=== PATIENT | female | born 1995 | race Caucasian/White ===

== ENCOUNTER 2018-02-04 15:55 | Inpatient (IN) ==
--- OUTSIDE RECORDS SUMMARY | 2018-02-04 16:09 | External Medical Summary | Clinical Summary ---
:1995 Author Organization [facility] Address [address] [place] [address] Care Team Providers Name Role Phone Unavailable Primary Care Provider Unavailable Allergies No Known Allergies Current Medications Prescription Sig. Disp. Refills Start Date End Date Status multivitamin Take 1 tablet by Active ( PLUS) 27-1 MG mouth daily. TABS Active Problems No known active problems Family History Medical History Relation Name Comments Hypertension Mother Relation Name Status Comments Father Alive Mother Alive Social History Tobacco Use Types Packs/Day Years Used Date Never Smoker Smokeless Tobacco: Never Used Alcohol Use Drinks/Week oz/Week Comments No Sex Assigned at Date Recorded Not on file Last Filed Vital Signs Vital Sign Reading Time Taken Blood Pressure 112/70 10/28/2016 10:38 AM CDT Pulse 76 10/28/2016 10:38 AM CDT Temperature - - Respiratory Rate - - Oxygen Saturation - - Inhaled Oxygen Concentration - - Weight 85.3 kg (188 lb) 10/28/2016 10:38 AM CDT Height 162.6 cm (5' 4") 10/28/2016 10:38 AM CDT Body Mass Index 32.27 10/28/2016 10:38 AM CDT Plan of Treatment Health Maintenance Due Date Last Done Comments HPV Vaccines (1 of 3 - Female 3 Dose 2007 Series) Varicella Vaccines (1 of 2 - 2 Dose 2009 Adolescent Series) MenB Vaccine (Bexsero) (1 of 2) 2012 DTaP,Tdap,and Td Vaccines (1 - Tdap) 2015 CERVICAL CANCER SCREENING 2017 Influenza Vaccine (Season Ended) 2018 06/18/2016, 05/13/2011, 05/25/2009 Results Not on filefrom Last 3 Months
[2018-02-04] MEDS ORDERED: DINOPROSTONE 10 MG VAGINAL INSERT VG ONE ×2 (16:13→17:59)
[2018-02-04] MEDS ORDERED: CARBOPROST 250 MCG/ML INJECTION IM PRN (16:13)
[2018-02-04] MEDS ORDERED: CALCIUM CARBONATE Chewable 500mg TABLET PO PRN (16:13)
[2018-02-04] MEDS ORDERED: MAG-AL + SIM ORAL LIQUID 30ml PO PRN (16:13)
[2018-02-04] MEDS ORDERED: METHYLERGONOVINE 0.2 MG/ML INJECTION IM PRN (16:13)
[2018-02-04] MEDS ORDERED: TERBUTALINE 1 MG/ML VIAL SQ PRN ×2 (16:13→17:59)
[2018-02-04] MEDS ORDERED: SALINE FLUSH 10ml SYRINGE IV PRN ×2 (16:13→17:59)
[2018-02-04] MEDS ORDERED: LIDOCAINE 1% (10mg/ml) 2mL INJ PF SDV ID PRN (16:13)
[2018-02-04 16:57] VITALS: BMI 40.6
[2018-02-04] MEDS ORDERED: DiphenhydrAMINE 25 MG CAPSULE PO PRN (17:45)
[2018-02-04] MEDS ORDERED: ZOLPIDEM 10 MG TABLET PO PRN (17:59)
--- NOTE | 2018-02-04 18:04 | OB/GYN Progress Note ---
PROCEDURE TECH Progress Note - Subjective Today's Date: 02/04/18 - Objective Laboratory Result: 02/04/18 16:33 02/04/18 16:33 - Assessment and Plan (1) Gestational diabetes mellitus Comment: Cervidil placed without difficulty. Pt tolerated procedure well.
[2018-02-05] MEDS ORDERED: D5LR 1,000 ML IV SCH ×2 (02:30→05:30)
[2018-02-05] MEDS: LR 1,000 ML IV PRN ×2 (02:30→05:37)
[2018-02-05] MEDS ORDERED: NALBUPHINE 10 MG/ML INJECTION IVP PRN ×2 (04:11→10:29)
[2018-02-05] MEDS ORDERED: LABETALOL 100mg/20ml INJECTION IVP ONE (04:41)
[2018-02-05] MEDS ORDERED: LABETALOL 20mg/4ml INJECTION IVP PRN (04:51)
[2018-02-05] MEDS ORDERED: CALCIUM GLUCONATE 4.65mEq/10ml INJECTION IV PRN (04:51)
[2018-02-05] MEDS ORDERED: CITRIC ACID/SODIUM CITRATE 30ml PO PRN (04:51)
[2018-02-05] MEDS ORDERED: MAGNESIUM SULFATE 6gm PREMIX 6 GM/100 ML BAG IV ONE (04:51)
[2018-02-05] MEDS ORDERED: LIDOCAINE 1% (10mg/ml) 2mL INJ PF SDV ID PRN (04:51)
[2018-02-05] MEDS: MAGNESIUM SULFATE DRIP 20 GM/500 ML BAG IV SCH ×2 (05:30→15:01)
--- NOTE | 2018-02-05 07:39 | Anesthesia Preoperative Report ---
Anesthesia Epidural/Spinal Rec - Date and Time Date: 02/05/18 Plan: Epidural, Spinal, GETA - Vital Signs /Para: P:0 Heart Rate: 127 - Medictaions & Allergies Inpatient Medications: Current Medications Acetaminophen (Tylenol) 500 - 1,000 mg PO Q4H PRN PRN Reason: Pain Al Hydroxide/Mg Hydroxide (Maalox Plus) 30 ml PO Q3H PRN PRN Reason: Indigestion Calcium Carbonate (Tums) 500 - 1,000 mg PO Q2H PRN PRN Reason: Indigestion Calcium Gluconate (Calcium Gluconate 4.65 Meq/10 Ml (1 Gram)) 4.65 meq IV O PRN Carboprost Tromethamine (Hemabate) 250 mcg IM O PRN PRN Reason: .Downtime Citric Acid/Sodium Citrate (Oracit) 30 ml PO Q2H PRN Diphenhydramine HCl (Benadryl) 50 mg PO HS PRN PRN Reason: Sleep Lactated Ringer's (Lactated Ringers) 1,000 mls @ 999 mls/hr IV .Q1H1M PRN Last Admin: 02/05/18 05:37 Dose: 999 mls/hr Dextrose/Lactated Ringer's (Dextrose 5%-Lactated Ringers) 1,000 mls @ 125 mls/ hr IV .Q8H [facility] Last Infusion: 02/05/18 05:29 Dose: Infused Magnesium Sulfate (Magnesium Sulfate Drip) 20 gm in 500 mls @ 50 mls/hr IV .Q10H YEIMY PRN Reason: 2 G/HR Last Admin: 02/05/18 05:30 Dose: 2 g/hr, 50 mls/hr Dextrose/Lactated Ringer's (Dextrose 5%-Lactated Ringers) 1,000 mls @ 50 mls/ hr IV .Q20H YEIMY Last Admin: 02/05/18 05:45 Dose: 50 mls/hr Labetalol HCl (Trandate) 20 mg IVP Q10M PRN Lidocaine HCl (Xylocaine-Mpf 1% Vial) 0.2 mg ID O PRN PRN Reason: IV Start Lidocaine HCl (Xylocaine-Mpf 1% Vial) 1 mg ID PRN PRN PRN Reason: IV Start Methylergonovine Maleate (Methergine) 0.2 mg IM O PRN Misoprostol (Cytotec) 800 mcg [place] ONCE PRN Nalbuphine HCl (Nubain) 10 mg IVP ONE TIME PRN Last Admin: 02/05/18 04:24 Dose: 10 mg Sodium Chloride (Iv Flush) 10 - 80 ml IV PRN PRN PRN Reason: Flushing Sodium Chloride (Iv Flush) 10 - 80 ml IV PRN PRN PRN Reason: Flushing Terbutaline Sulfate (Brethine) 0.25 mg SQ PRN PRN Terbutaline Sulfate (Brethine) 0.25 mg SQ PRN PRN Zolpidem Tartrate (Ambien) 10 mg PO HS PRN PRN Reason: Insomnia Allergies/Adverse Reactions: Allergies Allergy/AdvReac Type Severity Reaction Status Date / Time No Known Drug Allergies Allergy Unknown Verified 02/04/18 16:31 - Home Medications Home Medications: Home Medications Medication Instructions Recorded Confirmed Type ,Calc.40/Iron/Folate 1 1 each PO DAILY 01/03/18 02/04/18 History [Pnv-Select Tablet] Insulin Glargine [Lantus] 5 unit SQ DAILY 01/26/18 02/04/18 History - Medical History Respiratory: Reports: Asthma Cardiovascular: Reports: Hypertension ( induced) Gastrointestional: Reports: Gastroesophageal Reflux Disease, Morbid Obesity, Other (frequent diarrhea) Renal/Endocrine: Reports: Diabetes Mellitus Type 2 (gestational diabetes), Thyroid Disease, Other (GDDM now) Other History: Reports: Now - Surgical History GI Surgery/Treatments: Reports: Appendectomy Anesthesia Reactions: None Hx Family Anesthesia Reaction: No History of Motion Sickness: No - Social History Smoking Status: Never smoker Second Hand Exposure: No Substance Use Type: does not use Alcohol Intake Frequency: does not drink Hx Chewing Tobacco Use: No - Pertinent Findings Lab Data: CBC and BMP 02/04/18 16:33 02/04/18 16:33 BMP 02/04/18 16:33 Sodium 142 Potassium 4.0 Chloride 110 H Carbon Dioxide 20 L BUN 12.0 Creatinine 0.9 Glucose 85 Calcium 9.0 Liver Function 02/04/18 Range/Units 16:33 Total Bilirubin 0.30 (0.20-1.30) MG/DL AST 22 (14-36) U/L ALT 16 (1-35) U/L Alkaline Phosphatase 140 H (38-126) U/L Albumin 3.5 (3.5-5.0) g/dL - Physical Exam Respiratory Exam: lungs clear, bilateral breath sounds equal Cardiovascular Exam: regular rate and rhythm - Airway Assessment Mallampati Score: II TMD: 3 Fingerbreadths Neck Extension: fair Overall Assessment: no airway concerns - ASA ASA Score: 3 - Discussion Discussion: Discussed risks/options/alternatives of anesthesia and questions answered. Patient consents. Nursing pain assessment noted. Anesthesia Discussion: family member Attestation Statement: Prior to the delivery of any anesthetic medication, I examined the patient, developed the plan, obtained the patient's consent and discussed the risk and benefits of the procedure with the patient/guardian.
[2018-02-05] MEDS ORDERED: D5LR 1,000 ML IV PRN (07:56)
[2018-02-05] MEDS ORDERED: OXYTOCIN DRIP 30 UNIT/500 ML ML IV PRN (07:56)
[2018-02-05] MEDS ORDERED: ROPIVACAINE 1% 10MG/ML INJ 200 MG, SUFentanil 50 MCG in NS 100 ML EPI PRN (14:42)
[2018-02-05] MEDS ORDERED: DiphenhydrAMINE 50 MG/ML INJECTION IVP PRN (14:42)
[2018-02-05] MEDS ORDERED: ONDANSETRON 4 MG/2 ML INJECTION IVP PRN (14:42)
[2018-02-05] MEDS ORDERED: NALOXONE 0.4 MG/ML INJECTION IVP PRN (14:42)
--- NOTE | 2018-02-05 14:42 | Anesthesia Preoperative Report ---
Anesthesia Epidural/Spinal Rec - Date and Time Date: 02/05/18 Procedure: Labor Epidural Plan: Epidural - Vital Signs Vital Signs: Respiratory Rate 16 02/05/18 10:24 /Para: P:0 - Medictaions & Allergies Inpatient Medications: Current Medications Acetaminophen (Tylenol) 500 - 1,000 mg PO Q4H PRN PRN Reason: Pain Al Hydroxide/Mg Hydroxide (Maalox Plus) 30 ml PO Q3H PRN PRN Reason: Indigestion Calcium Carbonate (Tums) 500 - 1,000 mg PO Q2H PRN PRN Reason: Indigestion Calcium Gluconate (Calcium Gluconate 4.65 Meq/10 Ml (1 Gram)) 4.65 meq IV O PRN Carboprost Tromethamine (Hemabate) 250 mcg IM O PRN PRN Reason: .Downtime Citric Acid/Sodium Citrate (Oracit) 30 ml PO Q2H PRN Diphenhydramine HCl (Benadryl) 50 mg PO HS PRN PRN Reason: Sleep Lactated Ringer's (Lactated Ringers) 1,000 mls @ 999 mls/hr IV .Q1H1M PRN Last Admin: 02/05/18 05:37 Dose: 999 mls/hr Magnesium Sulfate (Magnesium Sulfate Drip) 20 gm in 500 mls @ 50 mls/hr IV .Q10H YEIMY PRN Reason: 2 G/HR Last Admin: 02/05/18 05:30 Dose: 2 g/hr, 50 mls/hr Oxytocin (Pitocin Drip) 30 unit in 500 mls @ 2 mls/hr IV .Q24H PRN; Protocol PRN Reason: Induction/Augmentation Last Admin: 02/05/18 08:21 Dose: 2 mls/hr Dextrose/Lactated Ringer's (Dextrose 5%-Lactated Ringers) 1,000 mls @ 125 mls/ hr IV .Q8H PRN PRN Reason: Labor Last Admin: 02/05/18 08:55 Dose: 50 mls/hr Labetalol HCl (Trandate) 20 mg IVP Q10M PRN Lidocaine HCl (Xylocaine-Mpf 1% Vial) 0.2 mg ID O PRN PRN Reason: IV Start Lidocaine HCl (Xylocaine-Mpf 1% Vial) 1 mg ID PRN PRN PRN Reason: IV Start Methylergonovine Maleate (Methergine) 0.2 mg IM O PRN Misoprostol (Cytotec) 800 mcg [place] ONCE PRN Sodium Chloride (Iv Flush) 10 - 80 ml IV PRN PRN PRN Reason: Flushing Sodium Chloride (Iv Flush) 10 - 80 ml IV PRN PRN PRN Reason: Flushing Terbutaline Sulfate (Brethine) 0.25 mg SQ PRN PRN Terbutaline Sulfate (Brethine) 0.25 mg SQ PRN PRN Zolpidem Tartrate (Ambien) 10 mg PO HS PRN PRN Reason: Insomnia Allergies/Adverse Reactions: Allergies Allergy/AdvReac Type Severity Reaction Status Date / Time No Known Drug Allergies Allergy Unknown Verified 02/04/18 16:31 - Home Medications Home Medications: Home Medications Medication Instructions Recorded Confirmed Type ,Calc.40/Iron/Folate 1 1 each PO DAILY 01/03/18 02/04/18 History [Pnv-Select Tablet] Insulin Glargine [Lantus] 5 unit SQ DAILY 01/26/18 02/04/18 History - Medical History Respiratory: Reports: Asthma Cardiovascular: Reports: Hypertension ( induced) Gastrointestional: Reports: Gastroesophageal Reflux Disease, Morbid Obesity, Other (frequent diarrhea) Renal/Endocrine: Reports: Diabetes Mellitus Type 2 (gestational diabetes), Thyroid Disease, Other (GDDM now) Other History: Reports: Now - Surgical History GI Surgery/Treatments: Reports: Appendectomy Anesthesia Reactions: None Hx Family Anesthesia Reaction: No History of Motion Sickness: No - Social History Smoking Status: Never smoker Second Hand Exposure: No Substance Use Type: does not use Alcohol Intake Frequency: does not drink Hx Chewing Tobacco Use: No - Pertinent Findings Lab Data: CBC and BMP 02/05/18 07:35 02/05/18 07:35 BMP 02/04/18 02/05/18 16:33 07:35 Sodium 142 141 Potassium 4.0 3.8 Chloride 110 H 112 H Carbon Dioxide 20 L 19 L BUN 12.0 12.0 Creatinine 0.9 0.9 Glucose 85 104 Calcium 9.0 8.6 Liver Function 02/04/18 02/05/18 Range/Units 16:33 07:35 Total Bilirubin 0.30 0.30 (0.20-1.30) MG/DL AST 22 47 H D (14-36) U/L ALT 16 14 (1-35) U/L Alkaline Phosphatase 140 H 155 H (38-126) U/L Albumin 3.5 3.3 L (3.5-5.0) g/dL - Physical Exam Respiratory Exam: lungs clear, bilateral breath sounds equal Cardiovascular Exam: regular rate and rhythm - Airway Assessment Mallampati Score: II TMD: 3 Fingerbreadths Overall Assessment: may be difficult mask vent, may be difficult intubation - ASA ASA Score: 3 - Discussion Discussion: Discussed risks/options/alternatives of anesthesia and questions answered. Patient consents. Nursing pain assessment noted. Anesthesia Discussion: spouse, family member Attestation Statement: Prior to the delivery of any anesthetic medication, I examined the patient, developed the plan, obtained the patient's consent and discussed the risk and benefits of the procedure with the patient/guardian.
[2018-02-05] MEDS ORDERED: TRANEXAMIC ACID 1,000 MG in NS 100 ML IV ONE (20:50)
[2018-02-05] MEDS ORDERED: HYDROCORTISONE 2.5% CREAM 30gm RECTALLY PRN (21:07)
[2018-02-05] MEDS ORDERED: OXYTOCIN DRIP 30 UNIT/500 ML ML IV SCH (21:15)
[2018-02-05] MEDS ORDERED: MAGNESIUM SULFATE DRIP 20 GM/500 ML BAG IV SCH (21:15)
[2018-02-05] MEDS: HYDROCODONE/APAP 5mg/325mg TABLET PO PRN (23:51)
[2018-02-06] MEDS: MAGNESIUM SULFATE DRIP 20 GM/500 ML BAG IV SCH (01:18)
[2018-02-06] MEDS: ACETAMINOPHEN 500 MG TABLET PO PRN ×2 (05:21→19:20)
[2018-02-06] MEDS: DOCUSATE CALCIUM 240 MG CAPSULE PO SCH (11:20)
[2018-02-06] MEDS: HYDROCODONE/APAP 5mg/325mg TABLET PO PRN (11:20)
--- NOTE | 2018-02-06 12:35 | OB/GYN Progress Note ---
OB-PP Progress Note - General PPD1 Maternal Group B Strep: Negative Maternal blood type: O+ Maternal Rubella Status: Immune - Subjective Date: 02/06/18 Lochia: Minimal Pain: controlled Voiding: baxter still in place Subjective Comments: She is really tired of the magnesium because of how it makes her feel. Her baby went to [facility] last PM for respiratory distress. - Objective Vital Signs: Last Vital Signs Temp 97.5 F 02/06/18 09:00 Pulse 85 02/06/18 11:56 Resp 20 02/06/18 11:00 BP 142/88 H 02/06/18 11:56 Pulse Ox 99 02/06/18 11:56 Urine Output: good General: alert and oriented Respiratory: non-labored Abdomen: fundus firm, non-tender Extremities: non-tender Laboratory: Laboratory Results - last 24 hr 02/06/18 02/06/18 06:15 06:15 WBC 25.5 H* D RBC 4.11 Hgb 11.8 L Hct 34.4 L MCV 83.7 MCH 28.7 MCHC 34.3 RDW Std Deviation 39.4 Plt Count 128 L MPV 13.4 H Turbidity < 20 Sodium 136 Potassium 4.2 Chloride 109 H Carbon Dioxide 19 L Anion Gap 8 BUN 9.0 Creatinine 0.9 GFR Calculation 79 BUN/Creatinine Ratio 10 Glucose 103 Calculated Osmolality 261 Calcium 7.6 L D Total Bilirubin 0.40 Icterus Index < 2 AST 28 ALT 14 Alkaline Phosphatase 126 Total Protein 5.2 L Albumin 2.8 L Globulin 2.4 Albumin/Globulin Ratio 1.2 Specimen Hemolysis 29 H - Assessment (1) (spontaneous vaginal delivery) Status: Acute (2) Severe pre-eclampsia, delivered, current hospitalization Comment: DC MgSO4 and baxter at 1800. Status: Acute (3) Gestational diabetes mellitus Comment: FBS was good. Reminded her that 1/2 of all women with GDM will develop regular DM, so she should continue the DM diet. Status: Acute
--- NOTE | 2018-02-06 15:13 | Labor and Delivery Note ---
DATE OF DELIVERY 02/05/2018 CAROLYN Alexander is a 22-year-old 3, para 0-0-2-0 at 38 weeks 6 days gestational age who was brought in the evening of the for cervical ripening with Cervidil due to insulin-dependent gestational diabetes. During the night her membranes ruptured spontaneously, returning clear fluids. She also had increasing blood pressures into the severe range. She was given a dose of labetalol and started on magnesium for seizure prophylaxis. The next morning her cervix did not change past 4 cm so she was started on Pitocin. When she got to be 7 cm she received an epidural. When she was complete she was allowed to labor down for an hour. She then pushed for four hours and rotated baby from LOP to KIMBERLY. She had a spontaneous vaginal delivery of a viable male , Apgars 8/9m weight 4400 g, name "Gagan." Baby was vigorous at delivery so he was placed on mom's abdomen and cord clamping was delayed for more than two minutes. The placenta delivered spontaneously. She had a second-degree laceration that was repaired. Her uterus continued to be mildly atonic so she was given a dose of Hemabate and TXA. By the time the delivery was finished her lochia was minimal. She will be continued on magnesium for 24 hours. [facility]
--- NOTE | 2018-02-07 09:53 | OB/GYN Progress Note ---
OB-PP Progress Note - General PPD2 Maternal Group B Strep: Negative Maternal blood type: O+ Maternal Rubella Status: Immune - Subjective Date: 02/07/18 Lochia: Minimal Pain: controlled Voiding: voiding Subjective Comments: She's feeling much better since the mag was DC last PM. Baby is off CPAP now. - Objective Vital Signs: Last Vital Signs Temp 98.5 F 02/07/18 07:00 Pulse 85 02/07/18 07:00 Resp 16 02/07/18 07:00 BP 156/96 H 02/07/18 07:00 Pulse Ox 98 02/07/18 07:00 Urine Output: good General: alert and oriented Respiratory: non-labored Extremities: non-tender Side: bilateral Edema Degree: 2+ - Assessment (1) (spontaneous vaginal delivery) Status: Acute (2) Severe pre-eclampsia, delivered, current hospitalization Comment: Resolving. Status: Acute (3) Gestational diabetes mellitus Status: Acute - Plan Plan: routine care, continue PNV Dismiss to boarding. Return to my office on Thu for a BP check.
[2018-02-07] MEDS: DOCUSATE CALCIUM 240 MG CAPSULE PO SCH (12:42)
[2018-02-07 17:45] VITALS: BP 136/69; PULSE 76; RESP 18; O2SAT 100
[2018-02-07 18:14] VITALS: TEMP 99.3
== END 2018-02-07 18:18 | disposition home or self-care (01) | DRG 774 ==
LOC: MC 15:55
PROVIDERS: ADMIT Obstetrics & Gynecology; ATTEND Obstetrics & Gynecology